=== PATIENT | male | born 1985 | race Caucasian/White ===

== ENCOUNTER 2023-08-18 07:12 | Emergency (ER) | payer OTHER ==
[~2023-08-18] VITALS: Ht 177.8 cm; Wt 100.7 kg
[2023-08-18] MEDS ORDERED: ACETAMINOPHEN ES 500 MG TABLET PO ONE (07:30)
[2023-08-18] MEDS ORDERED: ACETAMINOPHEN ES 500 MG TABLET ONE (07:40)
[2023-08-18] MEDS ORDERED: IBUP-1955 PO (09:23)
[2023-08-18] MEDS ORDERED: CYCL5TAB PO (09:23)
[2023-08-18 09:37] VITALS: BP 141/77; TEMP 98; O2SAT 94
== END 2023-08-18 09:38 | disposition home or self-care (01) ==
LOC: ER 07:15
DX: S46.911A Strain of unspecified muscle, fascia and tendon at shoulder and upper arm level, right arm, initial encounter (principal); S16.1XXA Strain of muscle, fascia and tendon at neck level, initial encounter; S13.4XXA Sprain of ligaments of cervical spine, initial encounter; S29.012A Strain of muscle and tendon of back wall of thorax, initial encounter; S63.612A Unspecified sprain of right middle finger, initial encounter; V43.92XA Unspecified car occupant injured in collision with other type car in traffic accident, initial encounter; Y93.89 Activity, other specified; Y92.411 Interstate highway as the place of occurrence of the external cause; Y99.8 Other external cause status
CPT/HCPCS: 71045-TC; 72125-TC; 73030-TC; 73130-TC